=== PATIENT | female | born 1935 | race Caucasian/White ===

== ENCOUNTER 2021-11-26 06:59 | Day surgery (SDC) | payer MEDICARE ==
[2021-11-25 13:17] LABS: BASOPHILS % (AUTO) 0.7 % (0-1); EOSINOPHILS # (AUTO) 0.1 X10'3 (0-0.9); EOSINOPHILS % (AUTO) 1.3 % (0-6); HEMATOCRIT 36.4 % (35.0-45.0); HEMOGLOBIN 11.6 g/dl (12.0-16.0); LYMPHOCYTES # (AUTO) 0.6 X10'3 (1.1-4.8); LYMPHOCYTES % (AUTO) 13.3 % (21-51); MEAN CORPUSCULAR HEMOGLOBIN 24.9 PG (27.0-31.0); MEAN CORPUSCULAR VOLUME 77.9 FL (78-98); MEAN PLATELET VOLUME 8.4 FL (7.4-10.4); MONOCYTES # (AUTO) 0.6 X10'3 (0-0.9); MONOCYTES % (AUTO) 12.3 % (2-12); NEUTROPHILS # (AUTO) 3.4 X10'3 (1.8-7.7); NEUTROPHILS % (AUTO) 72.4 % (42-75); PLATELET COUNT 167 X10'3 (140-440); RED BLOOD COUNT 4.67 X10'6 (4.20-5.60); RED CELL DISTRIBUTION WIDTH 17.5 % (11.5-14.5); WHITE BLOOD COUNT 4.7 X10'3 (4.5-11.0)
[2021-11-25 13:22] LABS: ALBUMIN 3.3 G/DL (3.4-5.0); ANION GAP 8 (8-16); BLOOD UREA NITROGEN 41 MG/DL (7-18); BUN/CREATININE RATIO 23.8 (6.6-38.0); CALCIUM 8.5 MG/DL (8.5-10.1); CHLORIDE 101 MMOL/L (99-107); CREATININE 1.72 MG/DL (0.40-0.90); GLUCOSE 117 MG/DL (70-104); POTASSIUM 4.6 MMOL/L (3.5-5.1); SODIUM 137 MMOL/L (135-145); TOTAL CARBON DIOXIDE 28.1 MMOL/L (24-32); eGFR 28 ML/MIN
[2021-11-26] VITALS (9 sets, daily range): BP systolic 135–151; BP diastolic 52–80
[~2021-11-26] VITALS: Ht 149.9 cm; Wt 46.1 kg
[2021-11-26] MEDS ORDERED: diphenhydrAMINE 25mg capsule PO ONE (07:30)
[2021-11-26] MEDS ORDERED: MIDAZolam 1mg/ml 10ml vial IV ONE (07:30)
[2021-11-26] MEDS ORDERED: LORazepam 0.5 MG tablet PO ONE (07:30)
[2021-11-26] MEDS ORDERED: morphine 10mg/ml inj. IV ONE (07:30)
[2021-11-26] MEDS ORDERED: amiodarone 150mg/dext, iso-os 100 ML IV ONE (07:30)
[2021-11-26] MEDS ORDERED: atropine 0.1mg/ml 10ml syringe IV ONE (07:30)
[2021-11-26] MEDS ORDERED: SYN0.088T PO (08:51)
[2021-11-26] MEDS ORDERED: AMIO200T27 PO (08:51)
[2021-11-26] MEDS ORDERED: METO25TA6 PO (08:51)
[2021-11-26] MEDS ORDERED: POTA-205 PO (08:51)
[2021-11-26] MEDS ORDERED: WARF4TAB69 PO (08:51)
[2021-11-26] MEDS ORDERED: FURO20TA4 PO (08:51)
[2021-11-26] MEDS ORDERED: ESTR0.5T PO (08:51)
[2021-11-26] MEDS ORDERED: VERA180C2 PO (08:51)
== END 2021-11-26 10:50 | disposition home or self-care (01) ==
LOC: SSTAY O 06:59
PROVIDERS: ATTEND Internal Medicine Cardiovascular Disease
DX: I48.19 Other persistent atrial fibrillation (principal); I10 Essential (primary) hypertension
CPT/HCPCS: 36415; 80048; 85025; 85610; 92960; 93005; 94760; 94799; J0282; J0461; J2250; J2274; J7030; Q0163; A4620